=== PATIENT | female | born 1955 | race Caucasian/White ===

== ENCOUNTER 2017-11-05 15:44 | Emergency (ER) | payer BC ==
[~2017-11-05] VITALS: Ht 162.6 cm; Wt 55.3 kg
[~2017-11-05 15:44] MED LIST: ALEN70TA55 PO; ATEN-60 PO; LIS10T PO; MAGN400T5 PO; SIMV-13 PO
[2017-11-05 16:48] LABS: Urine Bacteria MOD /hpf (None Seen); Urine Blood Negative /uL (Negative); Urine Specific Gravity 1.005 (1.001-1.035); Urine WBC 17 /hpf (0 - 5)
[2017-11-05 16:58] LABS: Basophils # (auto) 0 uL; Basophils % (auto) 0.5 % (0.0-2.0); Eosinophils # (auto) 0 uL; Eosinophils % (auto) 0.7 % (0.0-7.0); Hematocrit 38.6 % (36.0-46.0); Hemoglobin 13.5 g/dL (12.2-16.2); Lymphocytes # (auto) 2.7 uL; Lymphocytes % (auto) 47.1 % (10.0-50.0); Mean Corpuscular Hemoglobin 32.5 pg (28.0-32.0); Monocytes # (auto) 0.5 uL; Monocytes % (auto) 9.2 % (0.0-12.0); Neutrophils # (auto) 2.4 uL; Neutrophils % (auto) 42.5 % (37.0-80.0); Nucleated Red Blood Cells % 0.2 %; Platelet Count (auto) 305 10^3/uL (140-450); Red Blood Cells 4.15 10^6/uL (4.0-5.20); Red Cell Distribution Width 12.7 % (11.8-14.3); White Blood Cell 5.7 10^3/uL (4.4-10.8)
[2017-11-05 17:24] LABS: Alanine Aminotransferase 31 U/L (13-56); Albumin 4.1 g/dL (3.4-5.0); Alkaline Phosphatase 82 U/L (45-117); Anion Gap 11 (5-15); Aspartate Aminotransferase 18 U/L (15-37); BUN/Creatinine Ratio 12.2; Bilirubin, Total 0.6 mg/dL (0.2-1.0); Blood Urea Nitrogen 10 mg/dL (7-18); Calcium 9.5 mg/dL (8.5-10.1); Carbon Dioxide 25 mmol/L (21-32); Chloride 103 mmol/L (98-107); GFR African American 91 mL/min; GFR Non-African American 76 mL/min; Glucose 128 mg/dL (74-106); Potassium 3.7 mmol/L (3.5-5.1); Sodium 139 mmol/L (136-145); Total Protein 7.6 g/dL (6.4-8.2)
[2017-11-05 18:41] VITALS: BP 118/78
== END 2017-11-05 20:42 | disposition left against medical advice (07) ==
LOC: ER 15:44
DX: R06.02 Shortness of breath (principal); Z53.21 Procedure and treatment not carried out due to patient leaving prior to being seen by health care provider
CPT/HCPCS: 36415; 71046; 80053; 81001; 84484; 85025; 93005

== ENCOUNTER 2019-03-17 00:55 | Emergency (ER) | payer BC ==
[~2019-03-17] VITALS: Ht 160 cm; Wt 63.5 kg
[~2019-03-17 00:55] MED LIST changes: +ALEN1TAB32 PO; -ALEN70TA55 PO
[2019-03-17 01:49] LABS: Basophils # (auto) 0 uL; Basophils % (auto) 0.3 % (0.0-2.0); Eosinophils # (auto) 0 uL; Hematocrit 38.5 % (36.0-46.0); Hemoglobin 13.4 g/dL (12.2-16.2); Lymphocytes # (auto) 0.9 uL; Lymphocytes % (auto) 17.8 % (10.0-50.0); Mean Corpuscular Hemoglobin 33.2 pg (28.0-32.0); Mean Corpuscular Hgb Conc. 34.8 g/dL (32.0-36.0); Mean Corpuscular Volume 95.2 fL (80.0-100.0); Monocytes # (auto) 0.2 uL; Monocytes % (auto) 3.5 % (0.0-12.0); Neutrophils # (auto) 3.8 uL; Neutrophils % (auto) 78.4 % (37.0-80.0); Platelet Count (auto) 268 10^3/uL (140-450); Red Blood Cells 4.04 10^6/uL (4.0-5.20); White Blood Cell 4.9 10^3/uL (4.4-10.8)
[2019-03-17] MEDS ORDERED: SODIUM CHLORIDE 0.9% 1,000 ML IV ONE ×2 (02:00→03:00)
[2019-03-17] MEDS ORDERED: ONDANSETRON HCL 4 MG/2 ML VIAL IV ONE ×2 (02:00→04:00)
[2019-03-17] MEDS ORDERED: MORPHINE SULFATE 4 MG/ML SYR/VIAL IV ONE ×2 (02:00→04:00)
[2019-03-17] MEDS ORDERED: THIAMINE 100mg/ml INJ (200mg/2ml VIAL) IV ONE (02:00)
[2019-03-17 02:02] LABS: Alanine Aminotransferase 302 U/L (13-56); Amylase 385 U/L (25-115); Anion Gap 7 (5-15); Aspartate Aminotransferase 431 U/L (15-37); BUN/Creatinine Ratio 16.4; Blood Urea Nitrogen 12 mg/dL (7-18); Calcium 8.5 mg/dL (8.5-10.1); Carbon Dioxide 28 mmol/L (21-32); Chloride 101 mmol/L (98-107); GFR African American 104 mL/min; GFR Non-African American 86 mL/min; Glucose 131 mg/dL (74-106); Potassium 3.4 mmol/L (3.5-5.1); Sodium 136 mmol/L (136-145)
[2019-03-17 02:10] LABS: Urine Bacteria NONE SEEN /hpf (None Seen); Urine Blood Negative /uL (Negative); Urine Mucus FEW (None Seen); Urine Specific Gravity 1.016 (1.001-1.035); Urine WBC 1 /hpf (0 - 5)
[2019-03-17 02:10] LABS: Alkaline Phosphatase 128 U/L (45-117); Bilirubin, Total 0.5 mg/dL (0.2-1.0); Lipase 5129 U/L (73-393); Total Protein 7.7 g/dL (6.4-8.2)
[2019-03-17] MEDS ORDERED: IOHEXOL 300 MG/ML 100ML BOTTLE IJ ONE (02:31)
[2019-03-17 04:00] VITALS: BP 120/84
== END 2019-03-17 05:59 | disposition home or self-care (01) ==
LOC: ER 00:55 → EDSEX 00:55 → EDBD 00:55 → ER 05:59
DX: K85.20 Alcohol induced acute pancreatitis without necrosis or infection (principal); K70.30 Alcoholic cirrhosis of liver without ascites; I10 Essential (primary) hypertension; F17.210 Nicotine dependence, cigarettes, uncomplicated; Z90.49 Acquired absence of other specified parts of digestive tract; Z90.710 Acquired absence of both cervix and uterus; Z88.6 Allergy status to analgesic agent
CPT/HCPCS: 36415; 74177; 80053; 80320; 81001; 82150; 83690; 84484; 85025; 96361; 96374; 96375; 96376; 99284; J2270; J2405; J3411; J7030; Q9967

== ENCOUNTER 2020-08-13 14:31 | Inpatient (IN) | payer BC ==
[~2020-08-13] VITALS: Ht 162.6 cm; Wt 75.2 kg
[~2020-08-13 14:31] MED LIST changes: -ALEN1TAB32 PO; +ALEN70TA74 PO; +MAGN400T40 PO; -MAGN400T5 PO
[2020-08-13 15:03] LABS: Basophils # (auto) 0 10 ^3/uL (0-0.2); Basophils % (auto) 0.5 % (0.0-2.0); Eosinophils # (auto) 0 10 ^3/uL (0-0.8); Eosinophils % (auto) 0.1 % (0.0-7.0); Hemoglobin 13.7 g/dL (12.2-16.2); Lymphocytes % (auto) 36.1 % (10.0-50.0); Mean Corpuscular Hemoglobin 31.1 pg (28.0-32.0); Mean Corpuscular Hgb Conc. 34.3 g/dL (32.0-36.0); Mean Corpuscular Volume 90.7 fL (80.0-100.0); Monocytes # (auto) 0.5 10 ^3/uL (0-1.3); Monocytes % (auto) 9.7 % (0.0-12.0); Neutrophils % (auto) 53.6 % (37.0-80.0); Nucleated Red Blood Cells % 0.2 %; Platelet Count (auto) 282 10^3/uL (140-450); White Blood Cell 5.6 10^3/uL (4.4-10.8)
[2020-08-13] MEDS ORDERED: DIPHENOXYLATE W/ATROPINE 2.5 MG TAB PO ONE (15:15)
[2020-08-13 15:26] LABS: Albumin 4.2 g/dL (3.4-5.0); Anion Gap 12 (5-15); Blood Urea Nitrogen 6 mg/dL (7-18); Calcium 8.9 mg/dL (8.5-10.1); Carbon Dioxide 23 mmol/L (21-32); Chloride 103 mmol/L (98-107); Glucose 98 mg/dL (74-106); Magnesium 1.6 mg/dL (1.6-2.6); Sodium 138 mmol/L (136-145)
[2020-08-13 15:28] LABS: Alanine Aminotransferase 36 U/L (13-56); Aspartate Aminotransferase 31 U/L (15-37); BUN/Creatinine Ratio 6.5; GFR African American 80 mL/min; GFR Non-African American 66 mL/min
[2020-08-13 15:33] LABS: Alkaline Phosphatase 82 U/L (45-117); Bilirubin, Total 0.7 mg/dL (0.2-1.0); Total Protein 7.7 g/dL (6.4-8.2)
[2020-08-13 16:59] LABS: Urine Bacteria NONE SEEN /hpf (None Seen); Urine Blood Negative /uL (Negative); Urine Specific Gravity 1.001 (1.001-1.035); Urine WBC <1 /hpf (0 - 5)
[2020-08-13] MEDS ORDERED: MORPHINE SULF INJ 2 MG/ML SYRINGE 1ML IV PRN (17:30)
[2020-08-13] MEDS ORDERED: NITROGLYCERIN 0.4 MG SL TAB SL PRN (17:30)
[2020-08-13] MEDS ORDERED: hydrALAZINE HCL 20 MG/ML VL IV PRN (17:30)
[2020-08-13] MEDS: POTASSIUM CHLORIDE 40 MEQ in D5W 5% 1,000 ML IV SCH (18:48)
[2020-08-13] MEDS: MORPHINE SULF INJ 2 MG/ML SYRINGE 1ML IV PRN ×2 (18:48→22:54)
[2020-08-13] MEDS: ONDANSETRON HCL 4 MG/2 ML VIAL IV PRN (18:49)
[2020-08-13] MEDS: PANTOPRAZOLE 40 MG/10 ML VIAL INJ IV SCH (21:38)
[2020-08-13] MEDS: metroNIDAZOLE 500MG/100ML 100 ML IV SCH (21:38)
[2020-08-13] MEDS: ATENOLOL 25 MG TAB PO SCH (21:39)
[2020-08-13 22:00] VITALS: BP 157/79
[2020-08-14] MEDS: ONDANSETRON HCL 4 MG/2 ML VIAL IV PRN ×2 (00:18→06:26)
[2020-08-14 00:23] VITALS: BP 157/74
[2020-08-14] MEDS ORDERED: SIMV-8 PO (00:48)
[2020-08-14] MEDS ORDERED: ATEN50TA PO (00:48)
[2020-08-14] MEDS ORDERED: LISI-646 PO (00:48)
[2020-08-14] MEDS ORDERED: BACL10TA PO (00:48)
[2020-08-14] MEDS ORDERED: CHOL20007 OR (00:48)
[2020-08-14 05:00] VITALS: BP 128/70
[2020-08-14] MEDS: metroNIDAZOLE 500MG/100ML 100 ML IV SCH ×3 (05:39→22:00)
[2020-08-14 06:00] LABS: Basophils # (auto) 0 10 ^3/uL (0-0.2); Basophils % (auto) 0.3 % (0.0-2.0); Eosinophils # (auto) 0 10 ^3/uL (0-0.8); Eosinophils % (auto) 0.2 % (0.0-7.0); Hematocrit 37.9 % (36.0-46.0); Hemoglobin 13.5 g/dL (12.2-16.2); Lymphocytes # (auto) 1.5 10 ^3/uL (0.4-5.4); Lymphocytes % (auto) 36.1 % (10.0-50.0); Mean Corpuscular Hemoglobin 32.1 pg (28.0-32.0); Mean Corpuscular Hgb Conc. 35.7 g/dL (32.0-36.0); Mean Corpuscular Volume 89.9 fL (80.0-100.0); Monocytes # (auto) 0.5 10 ^3/uL (0-1.3); Monocytes % (auto) 11.4 % (0.0-12.0); Neutrophils # (auto) 2.2 10 ^3/uL (1.6-8.6); Nucleated Red Blood Cells % 0.2 %; Platelet Count (auto) 273 10^3/uL (140-450); Red Blood Cells 4.22 10^6/uL (4.0-5.20); Red Cell Distribution Width 13.3 % (11.8-14.3); White Blood Cell 4.2 10^3/uL (4.4-10.8)
[2020-08-14 06:17] LABS: Albumin 3.8 g/dL (3.4-5.0); Calcium 8.5 mg/dL (8.5-10.1); Potassium 3.4 mmol/L (3.5-5.1)
[2020-08-14 06:21] LABS: BUN/Creatinine Ratio 8.5; Total Protein 6.8 g/dL (6.4-8.2)
[2020-08-14] MEDS: MORPHINE SULF INJ 2 MG/ML SYRINGE 1ML IV PRN (06:25)
[2020-08-14] MEDS: POTASSIUM CHLORIDE 40 MEQ in D5W 5% 1,000 ML IV SCH ×2 (06:36→12:51)
[2020-08-14 09:00] VITALS: BP 148/97
[2020-08-14] MEDS: levoFLOXacin 500MG 100 ML IV SCH (09:00)
[2020-08-14] MEDS: PANTOPRAZOLE 40 MG/10 ML VIAL INJ IV SCH (09:00)
[2020-08-14] MEDS: ATENOLOL 25 MG TAB PO SCH ×2 (09:00→21:44)
[2020-08-14 10:39] LABS: INR 1.1 (0.9-1.15)
[2020-08-14] MEDS ORDERED: PROMETHAZINE HCL 25 MG/ML 1ML IV PRN (11:15)
[2020-08-14] MEDS ORDERED: ONDANSETRON HCL 4 MG/2 ML VIAL IV PRN (11:15)
[2020-08-14] MEDS ORDERED: SODIUM CHLORIDE LOCK 10 ML ONE (11:42)
[2020-08-14] MEDS ORDERED: LIDOCAINE VISCOUS 2% 15ML UD ONE (11:42)
[2020-08-14] MEDS ORDERED: diphenhdrAMINE HCL 50 MG/1 ML VL ONE (11:42)
[2020-08-14 13:00] VITALS: BP 157/94
[2020-08-14] MEDS ORDERED: PROMETHAZINE HCL 25 MG/ML 1ML ONE (13:44)
[2020-08-14] MEDS: MIDAZOLAM HCL 5 MG/ML-1ML VIAL ONE ×2 (14:21→14:24)
[2020-08-14] MEDS: fentaNYL CITRATE 100 MCG/2 ML VL ONE ×2 (14:21→14:24)
[2020-08-14] MEDS: SUCRALFATE 1 GM/10 ML ORAL SUSP PO SCH ×2 (18:05→21:38)
[2020-08-14] MEDS: PANTOPRAZOLE 40 MG TAB PO SCH (21:38)
[2020-08-14 22:00] VITALS: BP 115/74
[2020-08-15] MEDS: POTASSIUM CHLORIDE 40 MEQ in D5W 5% 1,000 ML IV SCH ×2 (00:06→13:40)
[2020-08-15 04:57] VITALS: BP 147/69
[2020-08-15] MEDS: metroNIDAZOLE 500MG/100ML 100 ML IV SCH (06:00)
[2020-08-15] MEDS: SUCRALFATE 1 GM/10 ML ORAL SUSP PO SCH ×2 (06:47→13:40)
[2020-08-15 06:54] LABS: Basophils # (auto) 0 10 ^3/uL (0-0.2); Basophils % (auto) 0.4 % (0.0-2.0); Eosinophils # (auto) 0 10 ^3/uL (0-0.8); Eosinophils % (auto) 0.5 % (0.0-7.0); Hematocrit 36.5 % (36.0-46.0); Hemoglobin 12.6 g/dL (12.2-16.2); Lymphocytes # (auto) 1.5 10 ^3/uL (0.4-5.4); Lymphocytes % (auto) 32.3 % (10.0-50.0); Mean Corpuscular Hemoglobin 31.3 pg (28.0-32.0); Mean Corpuscular Hgb Conc. 34.5 g/dL (32.0-36.0); Mean Corpuscular Volume 90.6 fL (80.0-100.0); Monocytes # (auto) 0.5 10 ^3/uL (0-1.3); Neutrophils # (auto) 2.6 10 ^3/uL (1.6-8.6); Neutrophils % (auto) 55.8 % (37.0-80.0); Nucleated Red Blood Cells % 0.1 %; Platelet Count (auto) 241 10^3/uL (140-450); Red Blood Cells 4.03 10^6/uL (4.0-5.20); Red Cell Distribution Width 13.7 % (11.8-14.3); White Blood Cell 4.7 10^3/uL (4.4-10.8)
[2020-08-15 07:14] LABS: Albumin 3.2 g/dL (3.4-5.0); Calcium 8.2 mg/dL (8.5-10.1); Potassium 3.5 mmol/L (3.5-5.1)
[2020-08-15 07:18] LABS: BUN/Creatinine Ratio 5.6; Bilirubin, Total 0.8 mg/dL (0.2-1.0)
[2020-08-15 08:21] VITALS: BP 135/79
[2020-08-15] MEDS: PANTOPRAZOLE 40 MG TAB PO SCH (09:59)
[2020-08-15] MEDS: levoFLOXacin 500MG 100 ML IV SCH (09:59)
[2020-08-15] MEDS: ATENOLOL 25 MG TAB PO SCH (10:00)
[2020-08-15 12:17] VITALS: BP 155/89
[2020-08-15 14:26] VITALS: BP 135/79
[2020-08-15 16:16] VITALS: BP 132/80
[2020-08-15 16:25] VITALS: BP 135/79
== END 2020-08-15 17:00 | disposition home or self-care (01) | DRG 392 ==
LOC: ER 14:31 → TELE 17:29 → TELE-CENTR 20:15
PROVIDERS: ADMIT Nurse Practitioner Acute Care; ATTEND Internal Medicine
PROC: 0DB68ZX Excision of Stomach, Via Natural or Artificial Opening Endoscopic, Diagnostic (ICD-10-PCS; principal; 2020-08-14 14:18)
DX: K29.70 Gastritis, unspecified, without bleeding (principal); K29.80 Duodenitis without bleeding; E78.5 Hyperlipidemia, unspecified; K27.9 Peptic ulcer, site unspecified, unspecified as acute or chronic, without hemorrhage or perforation; I10 Essential (primary) hypertension; E87.6 Hypokalemia; F17.210 Nicotine dependence, cigarettes, uncomplicated; K52.9 Noninfective gastroenteritis and colitis, unspecified; Z90.49 Acquired absence of other specified parts of digestive tract; Z90.710 Acquired absence of both cervix and uterus; F41.9 Anxiety disorder, unspecified; Z79.899 Other long term (current) drug therapy; Z87.442 Personal history of urinary calculi; Z20.822 Contact with and (suspected) exposure to COVID-19; Z88.5 Allergy status to narcotic agent
CPT/HCPCS: 36415; 71045; 74176; 80053; 81001; 82270; 83735; 84484; 85025; 85610; 86850; 86900; 86901; 87045; 87426; 87427; 96361; 96365; C9113; G0378; J1956; J2250; J2405; J3490

== ENCOUNTER 2023-10-31 04:45 | Inpatient (IN) | payer BC ==
[~2023-10-31] VITALS: Ht 162.6 cm; Wt 69.5 kg
[~2023-10-31 04:45] MED LIST changes: +ATEN50TA PO; +BACL10TA PO; +CHOL20007 OR; +LISI20TA56 PO; -SIMV-13 PO; +SIMV20TA20 PO; +SIMV40TA18 PO
[2023-10-31 06:05] LABS: COVID19 ANTIGEN SOFIA FIA POSITIVE (NEGATIVE)
[2023-10-31] MEDS: ONDANSETRON HCL 4 MG/2 ML VIAL IV ONE ×3 (06:11→18:48)
[2023-10-31 06:35] LABS: Alanine Aminotransferase 30 U/L (7-40); Albumin 4.5 g/dL (3.2-4.8); Alkaline Phosphatase 81 U/L (46-116); Anion Gap 13 (5-15); Aspartate Aminotransferase 35 U/L (13-40); BUN/Creatinine Ratio 8.1 (10.0-20.0); Blood Urea Nitrogen 6 mg/dL (9-23); Calcium 9.8 mg/dL (8.5-10.1); Carbon Dioxide 20 mmol/L (20-30); Chloride 104 mmol/L (98-107); Glucose 98 mg/dL (74-106); Potassium 3.5 mmol/L (3.5-5.1); Sodium 137 mmol/L (136-145)
[2023-10-31 06:36] VITALS: PULSE 54; O2SAT 96
[2023-10-31 06:36] LABS: Bilirubin, Total 0.9 mg/dL (0.2-1.0); Total Protein 7.1 g/dL (5.7-8.2)
[2023-10-31] MEDS: SODIUM CHLORIDE 0.9% 1,000 ML IV ONE (07:03)
[2023-10-31] MEDS: MORPHINE SULFATE 4 MG/ML SYR/VIAL IV ONE (07:05)
[2023-10-31 07:28] LABS: Basophils # (auto) 0 10 ^3/uL (0-0.2); Basophils % (auto) 0.3 % (0.0-2.0); Eosinophils # (auto) 0 10 ^3/uL (0-0.8); Eosinophils % (auto) 0.1 % (0.0-7.0); Hematocrit 41.8 % (36.0-46.0); Hemoglobin 14.1 g/dL (12.2-16.2); Lymphocytes # (auto) 1.8 10 ^3/uL (0.4-5.4); Lymphocytes % (auto) 30.9 % (10.0-50.0); Mean Corpuscular Hemoglobin 31.1 pg (28.0-32.0); Mean Corpuscular Hgb Conc. 33.7 g/dL (32.0-36.0); Mean Corpuscular Volume 92.4 fL (80.0-100.0); Monocytes # (auto) 0.5 10 ^3/uL (0-1.3); Monocytes % (auto) 7.8 % (0.0-12.0); Neutrophils # (auto) 3.6 10 ^3/uL (1.6-8.6); Neutrophils % (auto) 60.9 % (37.0-80.0); Nucleated Red Blood Cells % 0.2 %; Red Blood Cells 4.53 10^6/uL (4.0-5.20); Red Cell Distribution Width 12.9 % (11.8-14.3)
[2023-10-31] MEDS: KETOROLAC TROMETH 30 MG/ML 1ML VIAL IV ONE (10:40)
[2023-10-31] MEDS ORDERED: HYDR-4902 PO (11:01)
[2023-10-31] MEDS ORDERED: LOSA-534 PO (11:01)
[2023-10-31] MEDS: metroNIDAZOLE 500MG/100ML 100 ML IV ONE (18:18)
[2023-10-31 19:25] VITALS: PULSE 65; RESP 16; O2SAT 98
[2023-10-31] MEDS ORDERED: hydrALAZINE HCL 20 MG/ML VL IV PRN (20:45)
[2023-10-31] MEDS ORDERED: ACETAMINOPHEN 325 MG TAB PO PRN (20:45)
[2023-10-31] MEDS ORDERED: PROMETHAZINE HCL 6.25 MG/5 ML ORAL SYRUP PO PRN (20:45)
[2023-10-31] MEDS: HYDROcodone-ACET 5/325MG TAB PO PRN (22:25)
[2023-10-31] MEDS: metroNIDAZOLE 500MG/100ML 100 ML IV SCH (22:25)
[2023-10-31] MEDS: ATENOLOL 25 MG TAB PO SCH (22:25)
[2023-10-31] MEDS: levoFLOXacin 500MG 100 ML IV SCH (22:37)
[2023-10-31 22:49] LABS: Erythrocyte Sedimentation Rate 21 mm/hr (0-20)
[2023-11-01] VITALS (9 sets, daily range): BP systolic 118–143; BP diastolic 72–80; PULSE 63–68; RESP 17–20; TEMP 97.2–98.2; O2SAT 96–97
[2023-11-01] MEDS: SODIUM CHLORIDE 0.9% 1,000 ML IV SCH (06:45)
[2023-11-01] MEDS: LOSARTAN POTASSIUM 50 MG TAB PO SCH (08:47)
[2023-11-02 01:00] VITALS: BP 124/73; PULSE 68; RESP 18; TEMP 97.7; O2SAT 94
[2023-11-02 05:00] VITALS: BP 134/73; PULSE 59; RESP 18; TEMP 98.3; O2SAT 96
[2023-11-02 09:00] VITALS: BP 139/76; PULSE 67; RESP 20; TEMP 97.3; O2SAT 95
[2023-11-02] MEDS ORDERED: METR-344 PO (10:48)
[2023-11-02] MEDS ORDERED: LEVO500T91 PO (10:48)
[2023-11-02 13:00] VITALS: BP 133/70; PULSE 54; RESP 20; TEMP 97.2; O2SAT 95
[2023-11-02] MEDS: VANCOMYCIN HCL 125 MG CAP PO ONE (15:17)
[2023-11-02 15:54] VITALS: BP 152/73; PULSE 67; TEMP 36.2
[2023-11-02 17:00] VITALS: BP 150/82; PULSE 61; RESP 18; TEMP 97.4; O2SAT 97
[2023-11-03] MEDS ORDERED: VANC125PO PO (03:12)
== END 2023-11-02 18:45 | disposition home health service (06) | DRG 391 ==
LOC: ER 04:45 → TELE 20:46 → TELE-EAST 23:34 → EAST 11-02 12:40
PROVIDERS: ADMIT Internal Medicine; ATTEND Internal Medicine
DX: K52.9 Noninfective gastroenteritis and colitis, unspecified (principal); U07.1 COVID-19; I10 Essential (primary) hypertension; E78.5 Hyperlipidemia, unspecified; F17.210 Nicotine dependence, cigarettes, uncomplicated; G89.4 Chronic pain syndrome; M19.09 Primary osteoarthritis, other specified site; Z90.710 Acquired absence of both cervix and uterus; Z82.3 Family history of stroke; Z79.899 Other long term (current) drug therapy
CPT/HCPCS: 36415; 71045; 74176; 80053; 85025; 85048; 85652; 86141; 87045; 87426; 87427; 87493; 96365; 96375; G0378; J1885; J1956; J2405; J3490